=== PATIENT | male | born 1980 | race Caucasian/White ===

== ENCOUNTER 2017-08-22 08:34 | Day surgery (SDC) | payer BC ==
--- NOTE | 2017-08-22 08:02 | HP ---
DATE OF SURGERY: 08/22/2017 HISTORY OF PRESENT ILLNESS: The patient is a 37 year-old with upper esophagus chokes every time he eats but mainly with solids, worse over last couple of years. He had an upper endoscopy swallowing at [facility] two years ago and no other surgery needed. PAST MEDICAL HISTORY: PAST SURGICAL HISTORY: Upper endoscopy in the past. He had plantar fasciitis surgery in the past. Vasectomy. MEDICATIONS: None. ALLERGIES: NKDA. FAMILY HISTORY: Negative for esophageal or stomach cancer or problems. SOCIAL HISTORY: No smoking. He denies alcohol abuse. REVIEW OF SYSTEMS: Twelve systems reviewed per admission assessment. No chest pain or palpitations other systems negative or noncontributory as above and per preadmission questionnaire. PHYSICAL EXAMINATION: GENERAL: No acute distress. HEENT: Sclerae nonicteric. NECK: No JVD. CHEST: Equal excursion, nonlabored breathing. CVS: Regular rate and rhythm. ABDOMEN: Soft. No peritoneal signs. EXTREMITIES: No significant edema. NEURO: Alert, oriented, moving extremities symmetrically. No gross motor deficits noted. IMPRESSION: Dysphagia unclear etiology. I feel the patient would benefit from EGD, possible biopsy, possible dilatation pending operative findings. Risks and benefits explained in detail including but not limited to bleeding or infection, small risk of bowel injury or perforation possibly requiring open procedure, small risk of missed or nondiagnosis or incomplete exam possibly requiring barium swallow, other studies or procedures, possibility of inability to diagnose the etiology of his symptoms or if dilatation performed possibly of inability to improve his situation if it is more neurologic or functional problem rather than mechanical issue. He understands as well as if dilatation performed sometimes needed to be done again in the future, as well as dilatation performed and does not improve the situation may need further work up and/or testing. He understands all the above as well as risk of perforation possibly requiring major operative procedure, general risk of anesthesia, deep venous thrombosis, pulmonary embolism, pneumonia, perioperative risk of aches, pain, bloating, constipation, small risk of sedation but not limited to. He understands and agrees to the planned procedure and will proceed with EGD, possible biopsy, possible dilatation as an outpatient.
[~2017-08-22 08:34] MED LIST: Lactated Ringers 1,000 ML IV SCH
[2017-08-22] MEDS ORDERED: DIPRIVAN 200 MG/20 ML IV ONE (08:35)
[2017-08-22] MEDS ORDERED: Ketamine HCl 50 MG/ML IJ ONE (08:35)
[2017-08-22] MEDS ORDERED: Lactated Ringers 1,000 ML IV ONE (08:40)
[2017-08-22 11:35] VITALS: PULSE 51; O2SAT 96
[2017-08-22 11:36] VITALS: BP 129/91
--- NOTE | 2017-08-23 09:34 | OP ---
SURGERY DATE/TIME: 08/22/2017 1019 PREOPERATIVE DIAGNOSIS: Dysphagia. POSTOPERATIVE DIAGNOSES: 1) Small duodenal ulcers with duodenitis. 2) Mild gastritis. 3) Very short segment of questionable distal gastroesophagitis.4) Symptomatic proximal esophageal narrowing. PROCEDURES: 1) EGD with cold biopsy of small bowel to evaluate for sprue. 2) Cold biopsy of the antrum to evaluate for Helicobacter pylori. 3) Cold biopsy distal esophagus to evaluate for esophagitis versus early metaplasia. 4) Esophageal balloon dilatation (size 20 balloon dilator) proximal esophageal narrowing. SURGEON: Dr. David Ortiz. ANESTHESIA: MAC. ESTIMATED BLOOD LOSS: Minimal. INDICATIONS: As noted above. Risks and benefits explained in detail and not limited to and consent obtained. DESCRIPTION OF PROCEDURE AND FINDINGS: The patient is taken to the operating room. MAC anesthesia introduced. After official time out and no disagreement with planned procedure, a bite block positioned. Video gastroscope easily passed down the oropharynx. Proximal esophagus was narrowed. There was no obvious mass or lesion there but definitely had narrowing and spasm this is where he is having the symptoms. It was felt the scope could be passed through here, slightly narrowed and the fact that he is having symptoms in this area it was felt he would benefit from dilatation. The scope was able to be passed down through the distal esophagus. This was a very short segment just a few millimeters of distal gastroesophagitis. Cold biopsy taken. Good hemostasis noted. The gastroesophageal junction about 40 cm. The scope was passed into the stomach. He had some minimal to mild gastritis. Scope passed into the duodenum. He had some small ulcers and duodenitis. Cold biopsy taken of small bowel for further evaluation to evaluate for sprue versus other etiology. Otherwise there were no signs of any obvious masses or mucosal lesions, just the duodenitis and small ulcerations. The scope pulled back in the stomach. Cold biopsy taken to evaluate for Helicobacter pylori. Good hemostasis noted. On retroflex the gastroesophageal junction snug against the scope. No signs of any hiatal hernia. The scope pulled back to gastroesophageal junction. Again a very short segment of a few millimeters of gastroesophagitis. Cold biopsy taken for further evaluation. Good hemostasis noted. On withdrawal of the scope noted to have proximal esophageal narrowing as he was having symptoms in this area it was felt worthwhile to dilate. Therefore the scope passed back down the stomach. The 20 gauge balloon and catheter tip inserted in the stomach under direct vision in the stomach. It was then pulled back up to the proximal esophageal narrowing and then gradually inflated first stage for 45 seconds, size 18, size 19 for 45 seconds or so and finally size 20 for 2 minutes. The scope passed back down through there. The area was much more widely patent post-dilatation. There were no signs of any evidence of any full thickness injuries or issues secondary to dilatation. It was definitely more patent. The scope is withdrawn. The patient tolerated the procedure well. There were no immediate complications. Findings discussed with the family out in the waiting area.
== END 2017-08-22 11:51 | disposition home or self-care (01) ==
LOC: SDC 08:34
PROVIDERS: ATTEND Surgery
PROC: 0DB38ZX Excision of Lower Esophagus, Via Natural or Artificial Opening Endoscopic, Diagnostic (ICD-10-PCS; principal; 2017-08-22)
PROC: 0DB88ZX Excision of Small Intestine, Via Natural or Artificial Opening Endoscopic, Diagnostic (ICD-10-PCS; 2017-08-22)
PROC: 0DB78ZX Excision of Stomach, Pylorus, Via Natural or Artificial Opening Endoscopic, Diagnostic (ICD-10-PCS; 2017-08-22)
PROC: 0D718ZZ Dilation of Upper Esophagus, Via Natural or Artificial Opening Endoscopic (ICD-10-PCS; 2017-08-22)
DX: K26.9 Duodenal ulcer, unspecified as acute or chronic, without hemorrhage or perforation (principal); K29.80 Duodenitis without bleeding; K29.70 Gastritis, unspecified, without bleeding; K22.2 Esophageal obstruction
CPT/HCPCS: 00731; 88305; C1726; J2704

== ENCOUNTER 2017-10-24 08:36 | Day surgery (SDC) | payer BC ==
--- NOTE | 2017-10-24 07:37 | HP ---
DATE OF SURGERY: 10/24/2017 HISTORY OF PRESENT ILLNESS: The patient is a 37 year-old who has prior history of ulcer disease and is in need of follow up endoscopy to evaluate healing on proton pump inhibitor medication he had been on. He is swallowing better after dilatation. He is more comfortable. He has history of duodenal ulcers in need of follow up upper endoscopy. PAST SURGICAL HISTORY: He had plantar fasciitis surgery and endoscopy in the past. MEDICATIONS: Proton pump inhibitor. ALLERGIES: NKDA. PAST SURGICAL HISTORY: FAMILY HISTORY: Negative in regards to this problem. SOCIAL HISTORY: No smoking. REVIEW OF SYSTEMS: Twelve systems reviewed per admission assessment. No chest pain or palpitations other systems negative or noncontributory as above and per preadmission questionnaire. PHYSICAL EXAMINATION: GENERAL: No acute distress. HEENT: Sclerae nonicteric. NECK: No JVD. CHEST: Equal excursion, nonlabored breathing. CVS: Regular rate and rhythm. ABDOMEN: Soft. EXTREMITIES: No significant edema. NEURO: Alert, oriented, moving extremities symmetrically. No gross motor deficits noted. IMPRESSION: History of duodenal ulcer in need of follow up upper endoscopy to evaluate for healing on proton pump inhibitor. Risks and benefits explained in detail including but not limited to bleeding or infection, small risk of bowel injury or perforation possibly requiring open procedure, risk of ongoing morbidity, small risk of sedation not limited to. He understands and agrees to the planned procedure and will proceed with follow up upper endoscopy possible biopsy as an outpatient.
[~2017-10-24 08:36] MED LIST changes: +Lactated Ringers 1,000 ML IV ONE
[2017-10-24] MEDS ORDERED: Ketamine HCl 50 MG/ML IV ONE (08:37)
[2017-10-24] MEDS ORDERED: DIPRIVAN 200 MG/20 ML IV ONE (08:37)
[2017-10-24 11:05] VITALS: PULSE 50
[2017-10-24 11:22] VITALS: BP 112/73; O2SAT 96
--- NOTE | 2017-10-24 15:15 | OP ---
SURGERY DATE/TIME: 10/24/2017 1016 PREOPERATIVE DIAGNOSIS: History of duodenal ulcer, need for follow up upper endoscopy to evaluate for healing. POSTOPERATIVE DIAGNOSES: 1) Healed ulcer area. 2) Mild gastritis. 3) Mild duodenitis. PROCEDURE: EGD with cold biopsy of the antrum to evaluate for Helicobacter pylori. SURGEON: Dr. David Ortiz. ANESTHESIA: MAC. ESTIMATED BLOOD LOSS: Minimal. INDICATIONS: As noted above. Risks and benefits explained in detail and not limited to and consent obtained. DESCRIPTION OF PROCEDURE AND FINDINGS: The patient is taken to the operating room. MAC anesthesia introduced. After official time out and no disagreement with planned procedure, bite block positioned. Gastroscope easily passed down the esophagus through the patent pylorus to the junction of the second and third portion of the duodenum. There was some minimal duodenitis, area of previous ulcer that had healed. Scope pulled back into the stomach. He had some minimal to mild gastritis improved from the last endoscopy. No signs of any ulcers, masses or other mucosal lesions. Cold biopsy taken to evaluate for Helicobacter pylori. On retroflex there did not appear to be any significant hiatal hernia. The scope was straightened. Gastroesophageal junction fairly crisp. No signs of any esophageal issues at this point. Cold biopsy had been taken in the antrum to evaluate for Helicobacter pylori. Otherwise scope withdrawn. The patient tolerated the procedure well. There were no immediate complications. Findings discussed with the family out in waiting area.
== END 2017-10-24 11:42 | disposition home or self-care (01) ==
LOC: SDC 08:36
PROVIDERS: ATTEND Surgery
PROC: 0DB78ZX Excision of Stomach, Pylorus, Via Natural or Artificial Opening Endoscopic, Diagnostic (ICD-10-PCS; principal; 2017-10-24)
DX: Z09 Encounter for follow-up examination after completed treatment for conditions other than malignant neoplasm (principal); Z87.11 Personal history of peptic ulcer disease; K29.70 Gastritis, unspecified, without bleeding; K29.80 Duodenitis without bleeding
CPT/HCPCS: 88305; J2704

== ENCOUNTER 2022-06-03 07:35 | Day surgery (SDC) | payer BC ==
--- NOTE | 2022-05-28 07:56 | HP ---
DATE OF SURGERY: 06/03/2022 HISTORY OF PRESENT ILLNESS: The patient is a 41-year-old male presents for umbilical hernia for one year. He said it is painful and it does pop out. When he lays down he will push it in and relieve the pain. PAST MEDICAL HISTORY: None. PAST SURGICAL HISTORY: EGD. Vasectomy. ALLERGIES: NKDA. MEDICATIONS: None. FAMILY HISTORY: None. SOCIAL HISTORY: None. REVIEW OF SYSTEMS: CONSTITUTIONAL: Denies fever or chills. CHEST: Denies shortness of breath. CVS: Denies chest pain. ABDOMEN: Reports umbilical hernia pain. PHYSICAL EXAMINATION: GENERAL: No acute distress. CHEST: Nonlabored. No shortness of breath. CVS: Regular rate and rhythm. ABDOMEN: Incarcerated umbilical hernia. IMPRESSION: Incarcerated umbilical hernia. PLAN: Umbilical hernia repair with possible mesh with Dr. Catracho Dodd. As dictated by Caron Baez NP.
[~2022-06-03 07:35] MED LIST changes: +KEFZOL 1 GM ONE; -Lactated Ringers 1,000 ML IV ONE; -Lactated Ringers 1,000 ML IV SCH; +Sensorcaine 0.25% 10 ML ONE
[2022-06-03 08:13] VITALS: O2SAT 97
[2022-06-03] MEDS ORDERED: CEFAZOLIN 2 GM-D5W BAG** 2 GM/50 ML ML IV SCH (08:30)
[2022-06-03] MEDS ORDERED: Lactated Ringers 1,000 ML IV SCH (08:30)
[2022-06-03] MEDS ORDERED: Transderm Scop 1.5MG Patch ONE (08:47)
[2022-06-03] MEDS ORDERED: Versed 2 MG/2 ML Injection IV ONE (08:48)
[2022-06-03] MEDS ORDERED: Transderm Scop 1.5MG Patch TOP PRN (08:49)
[2022-06-03] MEDS ORDERED: DIPRIVAN 200 MG/20 ML IV ONE (09:46)
[2022-06-03] MEDS ORDERED: Decadron 4 MG INJ ONE (09:47)
[2022-06-03] MEDS ORDERED: ATROPINE SULFATE 1MG ONE (09:47)
[2022-06-03] MEDS ORDERED: Xylocaine-Mpf 2% 5 Ml Vial ONE (09:47)
[2022-06-03] MEDS ORDERED: Zofran 4 MG/2 ML VIAL ONE (09:47)
[2022-06-03] MEDS ORDERED: Quelicin Fliptop 200 MG/10 ML ONE (09:47)
[2022-06-03] MEDS ORDERED: Zemuron 100 MG/10 ML ONE (09:47)
[2022-06-03] MEDS ORDERED: SUBLIMAZE 100 MCG/2 ML ONE ×2 (09:49→11:01)
[2022-06-03] MEDS ORDERED: Pre-Attached Lta Kit TP ONE (09:55)
[2022-06-03] MEDS ORDERED: Ephedrine Sulfate 50 MG/ML ONE (11:11)
[2022-06-03] MEDS ORDERED: Lactated Ringers 1,000 ML IV ONE (11:26)
[2022-06-03] MEDS ORDERED: TORAdol 30 mg Injection ONE (11:39)
--- NOTE | 2022-06-03 11:40 | OP ---
SURGERY DATE/TIME: 06/03/2022 1044 PREOPERATIVE DIAGNOSIS: Umbilical hernia. POSTOPERATIVE DIAGNOSIS: Umbilical hernia with incarcerated fat preperitoneal. PROCEDURE: Primary umbilical herniorrhaphy. SURGEON: Catracho Dodd M.D. PLAQUE [employer]KER: Lamonte Ramirez, Medical Student III. ANESTHESIA: General. COMPLICATIONS: None. CONDITION: Stable. INDICATION: The patient has symptomatic hernia. DESCRIPTION OF PROCEDURE: Taken to surgery. Routine prep and drape. Time out performed. Curvilinear incision. Hernia dissected from the umbilicus. There was incarcerated fat. The sac and fat were able to be reduced. At this time the sac is closed with three sutures of #0 Prolene all inverting, a figure-of-8 Vicryl over top. Umbilicus closed with 4-0 Vicryl and glue. The patient tolerated the procedure satisfactorily. Findings discussed with the family in the waiting room.
[2022-06-03] MEDS ORDERED: NORCO 5/325 MG PO PRN (12:33)
[2022-06-03 14:17] VITALS: PULSE 48
[2022-06-03 14:18] VITALS: BP 120/80
== END 2022-06-03 13:28 | disposition home or self-care (01) ==
LOC: SDC 07:35
PROVIDERS: ATTEND Surgery
DX: K42.0 Umbilical hernia with obstruction, without gangrene (principal); K42.9 Umbilical hernia without obstruction or gangrene
CPT/HCPCS: J0330; J0461; J0690; J1100; J1885; J2250; J2405; J2704; J3010; A9270-GY